=== PATIENT | male | born 1955 | race Asian ===

== ENCOUNTER 2023-12-29 12:34 | Emergency (ER) | payer OTHER ==
[~2023-12-29] VITALS: Ht 172.7 cm; Wt 80.7 kg
[2023-12-29 12:35] VITALS: BP_SYST 128; PULSE 75; RESP 18; TEMP 97.2; O2SAT 98
[2023-12-29] MEDS: HYDROcodone/ACETAMIN 5-325 MG TAB (NORCO/ VICODIN) PO ONE (12:56)
[2023-12-29] MEDS: KETOROLAC TROMETHAMINE 30 MG VIAL IM ONE (14:32)
[2023-12-29] MEDS ORDERED: LIDO1ADH22 TP (15:37)
[2023-12-29] MEDS ORDERED: HYDR-3917 PO (15:37)
[2023-12-29 15:44] VITALS: BP_SYST 149; PULSE 82; RESP 16
== END 2023-12-29 15:44 | disposition home or self-care (01) ==
LOC: SED 12:34
DX: M51.26 Other intervertebral disc displacement, lumbar region (principal); M51.37 Other intervertebral disc degeneration, lumbosacral region; M25.552 Pain in left hip; R11.0 Nausea; R20.2 Paresthesia of skin; E11.9 Type 2 diabetes mellitus without complications; I10 Essential (primary) hypertension
CPT/HCPCS: 99285; 72131; 73502; 72192; 96372; J1885